=== PATIENT | male | born 1990 | race Hispanic/Latino ===

== ENCOUNTER 2018-10-19 14:17 | Emergency (ER) | payer SELFPAY ==
[2018-10-19 14:23] VITALS: BMI 30.1
--- NOTE | 2018-10-19 14:31 | ED PDOC ---
Arrival/HPI - General Historian: Patient - History of Present Illness Narrative History of Present Illness (Text): 10/19/18 14:57 27 y/o M with PMHx of depression, ADHD presents to [facility] after being found at work by a coworker after having a reported "seizure." Pt reports he was standing at work when he felt a "gustafson hazyness" and fell down. He reports he woke up on the ground and did not remember anything after he fell. He denies any symptoms of paralysis, weakness, neurological symptoms when he woke up. Currently he reports he feels his heart beating faster than normal, but no acute complaints. Pt reports he recently increased his dose of wellbutrin from 300mg to 450mg last week per his psychiatrist recommendations. His 12 point ROS is otherwise negative PMHx: depression, anxiety All: Denies PSH: Amblyopia surgery (1991), hernia repair Hosp: denies recent FH: Denies Meds: Wellbutrin 450mg. Ritalin. Finasteride [facility] Psychiatrist: Dr. Faustino Gallegos, PMHNP Time/Duration: Prior to Arrival Symptom Onset: Sudden Symptom Course: Unchanged Context: Standing <Sera Casas - Last Filed: 10/19/18 18:36> <Mickey Freitas - Last Filed: 10/19/18 19:56> - General Time Seen by Provider: 10/19/18 14:21 Past Medical History - Provider Review Nursing Documentation Reviewed: Yes <Sera Casas - Last Filed: 10/19/18 18:36> Family/Social History - Physician Review Nursing Documentation Reviewed: Yes Family/Social History: Unknown Family HX <Sera Casas - Last Filed: 10/19/18 18:36> Allergies/Home Meds <Sera Casas - Last Filed: 10/19/18 18:36> <Mickey Freitas - Last Filed: 10/19/18 19:56> Allergies/Adverse Reactions: Allergies No Known Allergies Allergy (Verified 10/19/18 14:23) Home Medications: Home Meds Medication Instructions Recorded Confirmed Methylphenidate [Ritalin] 10 mg PO DAILY 10/19/18 10/19/18 buPROPion SR [Wellbutrin SR 150 MG] 450 mg PO DAILY 10/19/18 10/19/18 Review of Systems - Review of Systems Constitutional: Normal Eyes: Normal ENT: Normal Respiratory: Normal Cardiovascular: Palpitations Gastrointestinal: Normal Genitourinary Male: Normal Musculoskeletal: Normal Skin: Normal Neurological: Normal Endocrine: Normal Hemo/Lymphatic: Normal Psychiatric: Normal <Sera Casas - Last Filed: 10/19/18 18:36> Physical Exam Vital Signs Reviewed: Yes Temperature: Afebrile Blood Pressure: Normal Pulse: Tachycardic Respiratory Rate: Normal Appearance: Positive for: Well-Appearing, Non-Toxic, Comfortable Pain Distress: None Mental Status: Positive for: Alert and Oriented X 3 - Systems Exam Head: Present: Atraumatic, Normocephalic Pupils: Present: PERRL Extroacular Muscles: Present: EOMI Conjunctiva: Present: Normal Mouth: Present: Moist Mucous Membranes Neck: Present: Normal Range of Motion Respiratory/Chest: Present: Clear to Auscultation, Good Air Exchange. No: Respiratory Distress, Accessory Muscle Use Cardiovascular: Present: Regular Rate and Rhythm, Normal S1, S2. No: Murmurs Abdomen: No: Tenderness, Distention, Peritoneal Signs Back: Present: Normal Inspection Upper Extremity: Present: Normal Inspection. No: Cyanosis, Edema Lower Extremity: Present: Normal Inspection. No: Edema Neurological: Present: GCS=15, CN II-XII Intact, Speech Normal Skin: Present: Warm, Dry, Normal Color. No: Rashes Psychiatric: Present: Alert, Oriented x 3, Normal Insight, Normal Concentration <eSra Casas - Last Filed: 10/19/18 18:36> Vital Signs Temp Pulse Resp BP Pulse Ox 10/19/18 18:49 98.4 F 92 H 18 135/71 99 10/19/18 18:47 98.4 F 92 H 18 135/71 99 10/19/18 17:00 97 H 19 127/85 98 10/19/18 15:34 110 H 18 150/89 97 10/19/18 14:17 98.6 F 121 H 19 132/91 H 93 L <Mickey Freitas - Last Filed: 10/19/18 19:56> Medical Decision Making ED Course and Treatment: 10/19/18 15:09 Impression: 27 y/o M presents to ED after new-onset seizure Prior notes & results reviewed Differential diagnosis includes but is not limited to: New-onset seizure Plan: Labs EKG CT Head UA/UDS serum alcohol Progress Notes: 10/19/18 17:05 U/a reveals trichomonas. Pt treated metronidazole, treated empirically for gonorrhea/chlamydia with rocephin/azitrho 10/19/18 18:21 Case discussed with neurologist on-call, Dr. Alberto. Recommended pt to stop wellbutrin. Recommendations appreciated. Pt informed of instructions and follow- up with psychiatrist. - RAD Interpretation Narrative RAD Interpretations (Text): 10/19/18 16:27 Chest Xray: No active disease Head CT: No acute findings <Sera Casas - Last Filed: 10/19/18 18:36> ED Course and Treatment: Seen and examined with resident. 27 y/o M p/w seizure. On exam, no tongue bite. - Lab Interpretations Lab Results: Total Bilirubin 1.0 mg/dL (0.2-1.3) 10/19/18 14:54 AST 41 U/L (17-59) 10/19/18 14:54 ALT 36 U/L (7-56) 10/19/18 14:54 Alkaline Phosphatase 79 U/L (38-126) 10/19/18 14:54 Total Protein 8.1 g/dL (5.8-8.3) 10/19/18 14:54 Albumin 4.9 g/dL (3.0-4.8) H 10/19/18 14:54 Globulin 3.2 gm/dL 10/19/18 14:54 Albumin/Globulin Ratio 1.5 (1.1-1.8) 10/19/18 14:54 Urine Color Yellow (YELLOW) 10/19/18 14:54 Urine Appearance Clear (CLEAR) 10/19/18 14:54 Urine pH 6.0 (4.7-8.0) 10/19/18 14:54 Ur Specific [place] >= 1.030 (1.005-1.035) 10/19/18 14:54 Urine Protein 100 mg/dL (<30 mg/dL) H 10/19/18 14:54 Urine Glucose (UA) Negative mg/dL (NEGATIVE) 10/19/18 14:54 Urine Ketones Negative mg/dL (NEGATIVE) 10/19/18 14:54 Urine Blood Small (NEGATIVE) H 10/19/18 14:54 Urine Nitrate Negative (NEGATIVE) 10/19/18 14:54 Urine Bilirubin Negative (NEGATIVE) 10/19/18 14:54 Urine Urobilinogen 0.2 E.U./dL (<1 E.U./dL) 10/19/18 14:54 Ur Leukocyte Esterase Negative Kurt/uL (NEGATIVE) 10/19/18 14:54 Urine RBC 5 - 10 /hpf (0-2) H 10/19/18 14:54 Urine WBC 2 - 5 /hpf (0-6) 10/19/18 14:54 Ur Epithelial Cells 3 - 4 /hpf (0-5) 10/19/18 14:54 Urine Bacteria Mod /hpf (NONE) 10/19/18 14:54 Hyaline Casts 0 - 2 /hpf (NONE) 10/19/18 14:54 Urine Other Trichomonas /hpf 10/19/18 14:54 - RAD Interpretation Radiology Orders: 10/19/18 14:55 HEAD W/O CONTRAST [CT] Stat 10/19/18 14:56 CHEST ONE VIEW [RAD] Stat - Medication Orders Current Medication Orders: Discontinued Medications Azithromycin (Zithromax) 1,000 mg PO STAT STA; Protocol Stop: 10/19/18 17:02 Last Admin: 10/19/18 17:12 Dose: 1,000 mg Ceftriaxone Sodium (Rocephin) 250 mg IM STAT STA; Protocol Stop: 10/19/18 17:02 Last Admin: 10/19/18 17:12 Dose: 250 mg IM Administration Charges Document 10/19/18 17:12 EB (Rec: 10/19/18 17:12 EB [id number]) Injection Site MAR Injection Site Right Gluteus Gabriel Charges for Administration # of IM Administrations 1 Metronidazole (Flagyl) 2,000 mg PO STAT STA; Protocol Stop: 10/19/18 17:00 Last Admin: 10/19/18 17:12 Dose: 2,000 mg <Mickey Freitas - Last Filed: 10/19/18 19:56> - PA / DEMURRAGE AGENT / Resident Statement / has reviewed & agrees with the documentation as recorded. / has examined the patient and agrees with the treatment plan. <Sera Casas - Last Filed: 10/19/18 18:36> Disposition/Present on Arrival - Present on Arrival Any Indicators Present on Arrival: No History of DVT/PE: No History of Uncontrolled Diabetes: No Urinary Catheter: No - Disposition Have Diagnosis and Disposition been Completed?: Yes Disposition Time: 17:26 Patient Plan: Discharge <Sera Casas - Last Filed: 10/19/18 18:36> <Mickey Freitas - Last Filed: 10/19/18 19:56> - Disposition Diagnosis: Syncope, Seizure, Trichomonas infection Disposition: HOME/ ROUTINE Condition: GOOD Discharge Instructions (ExitCare): Seizures, Adult (DC), Syncope (Fainting) (DC) Additional Instructions: Please follow up with your primary care doctor, BETZY Padilla, within 1 week. Please discuss your visit to the emergency room with your physician. Please stop taking your your wellbutrin medication until you follow-up with your psychiatrist. Please follow-up with your psychiatrist, KATHRYN Avilez within 1 week. Please discuss your emergency room visit with your physician. Please discuss medication management with you physician, specifically your wellbutrin medication If your symptoms return or worsen, please return to the nearest emergency room. Forms: [employer] ([place])
[2018-10-19 15:21] LABS: BASO # 0.06 K/mm3 (0.0-2.0); BASO % 0.8 % (0.0-3.0); EOS # 0.1 (0.0-0.7); EOS % 1.7 % (1.5-5.0); GRAN # 5.27 (1.4-6.5); GRAN % 69.9 % (50.0-68.0); HEMOGLOBIN 15.1 g/dL (14.0-18.0); LYMPH # 1.5 (1.2-3.4); LYMPH % 20.3 % (22.0-35.0); MEAN CELL VOLUME 91.3 fl (80.0-105.0); MEAN CORPUSCULAR HEMOGLOBIN 31.1 pg (25.0-35.0); MEAN CORPUSCULAR HGB CONC 34.1 g/dl (31.0-37.0); MEAN PLATELET VOLUME 9.1 fl (7.0-11.0); MONO # 0.6 (0.1-0.6); MONO % 7.3 % (1.0-6.0); RBC 4.85 10^6/uL (3.5-6.1); RED CELL DISTRIBUTION WIDTH 12.9 % (11.5-14.5); WHITE BLOOD COUNT 7.5 10^3/uL (4.5-11.0)
[2018-10-19 15:28] LABS: ALB/GLOB RATIO 1.5 (1.1-1.8); ALBUMIN 4.9 g/dL (3.0-4.8); ALT/SGPT 36 U/L (7-56); AST/SGOT 41 U/L (17-59); BLOOD UREA NITROGEN 18 mg/dL (7-21); CALCIUM 9.7 mg/dL (8.4-10.5); GFR NON-AFRICAN AMERICAN > 60
--- NOTE | 2018-10-19 15:38 | CT ---
Date of service: 10/19/2018 PROCEDURE: CT HEAD WITHOUT CONTRAST. HISTORY: Seizure COMPARISON: None available. TECHNIQUE: Axial computed tomography images were obtained through the head/brain without intravenous contrast. Supplemental Coronal and Sagittal projections created and reviewed. Radiation dose: Total exam DLP = 1032.67 mGy-cm. This CT exam was performed using one or more of the following dose reduction techniques: Automated exposure control, adjustment of the mA and/or kV according to patient size, and/or use of iterative reconstruction technique. FINDINGS: HEMORRHAGE: No intracranial hemorrhage. BRAIN: No mass effect or edema. No atrophy or chronic microvascular ischemic changes. VENTRICLES: Unremarkable. No hydrocephalus. CALVARIUM: Unremarkable. PARANASAL SINUSES: Unremarkable as visualized. No significant inflammatory changes. MASTOID AIR CELLS: Unremarkable as visualized. No inflammatory changes. OTHER FINDINGS: None. IMPRESSION: No acute intracranial abnormalities. No significant findings to account for the clinical presentation.
[2018-10-19 15:50] LABS: URINE BILIRUBIN NEGATIVE (NEGATIVE); URINE BLOOD SMALL (NEGATIVE); URINE GLUCOSE (UA) NEGATIVE (NEGATIVE); URINE LEUKOCYTE ESTERASE NEGATIVE Leu/uL (NEGATIVE); URINE PROTEIN 100 mg/dL (<30 mg/dL); URINE UROBILINOGEN 0.2 E.U./dL (<1 E.U./dL)
[2018-10-19 15:55] LABS: URINE APPEARANCE CLEAR (CLEAR); URINE COLOR YELLOW (YELLOW)
--- NOTE | 2018-10-19 16:03 | RAD ---
Date of service: 10/19/2018 PROCEDURE: CHEST RADIOGRAPH, 1 VIEW HISTORY: seizure like activity COMPARISON: None available. FINDINGS: LUNGS: Clear. PLEURA: No pneumothorax or pleural fluid seen. CARDIOVASCULAR: No aortic atherosclerotic calcification present. Normal. OSSEOUS STRUCTURES: No significant abnormalities. VISUALIZED UPPER ABDOMEN: Normal. OTHER FINDINGS: None. IMPRESSION: No active disease.
[2018-10-19 16:18] LABS: URINE BACTERIA MOD /hpf; URINE HYALINE CAST 0 - 2 /hpf
[2018-10-19] MEDS ORDERED: cefTRIAXone (Rocephin) 250 mg Inj IM STA (17:01)
[2018-10-19 18:32] LABS: BARBITURATES, UR NEGATIVE (NEGATIVE); BENZODIAZEPINES, UR NEGATIVE (NEGATIVE); OPIATES, UR NEGATIVE (NEGATIVE); PHENCYCLIDINE, UR NEGATIVE (NEGATIVE)
--- NOTE | 2018-10-19 18:35 | CARD ---
APPROVED REPORT Date of service: 10/19/2018 EKG Measurement Heart [id number] <Conclusion> Sinus tachycardia Otherwise normal ECG
[2018-10-19 18:48] VITALS: BP 135/71; PULSE 92; RESP 18; TEMP 98.4; O2SAT 99
== END 2018-10-19 18:49 | disposition home or self-care (01) ==
LOC: ED 14:17
DX: R56.9 Unspecified convulsions (principal); R55 Syncope and collapse; A59.9 Trichomoniasis, unspecified
CPT/HCPCS: 70450; 71045; 80053; 81001; 83735; 84100; 85025; 93005; 96372; 99285; G0480; J0696